=== PATIENT | female | born 1965 | race Caucasian/White ===

== ENCOUNTER 2019-05-08 20:16 | Day surgery (SDC) | payer OTHER ==
[~2019-05-08 20:16] MED LIST: ACETAMINOPHEN 1,000 MG/100 ML 100 ML IV ONE; DEXAMETHASONE 4 MG/ML VIAL IVP ONE; GLYCOPYRROLATE 1 MG/5 ML VIAL IVP ONE; LIDOCAINE-MPF 2% 5 ML VIAL IM ONE; MIDAZOLAM 2 MG/2 ML VIAL IVP ONE; NEOSTIGMINE 1 MG/1 ML 10 ML MDV IVP ONE; ONDANSETRON 4 MG/2 ML VIAL IVP ONE; PROPOFOL 200 MG/20 ML VIAL IVP ONE; ROCURONIUM 50 MG/5 ML VIAL IVP ONE; fentaNYL 100 MCG/2 ML VIAL IVP ONE
[2019-05-08] MEDS ORDERED: LIDOCAINE VISCOUS 2% 15 ML UDC MM STA ×2 (21:16→21:34)
[2019-05-08 21:17] LABS: BASOPHILS % (AUTO) 0.3 %; EOSINOPHILS # (AUTO) 0.1 10^3/uL (0.0-0.7); EOSINOPHILS % (AUTO) 1.1 %; HGB - HEMOGLOBIN 13.7 g/dL (12.0-16.0); LYMPHOCYTES # (AUTO) 1.8 10^3/uL (1.5-3.5); LYMPHOCYTES % (AUTO) 14.2 %; MEAN CORPUSCULAR HEMOGLOBIN 31.2 pg (27.0-31.0); MEAN CORPUSCULAR VOLUME 91.8 fL (81.0-99.0); MEAN PLATELET VOLUME 12.2 fL (7.9-10.8); MONOCYTES # (AUTO) 0.9 10^3/uL (0.0-1.0); MONOCYTES % (AUTO) 7.1 %; NEUTROPHILS # (AUTO) 9.8 10^3/uL (1.5-6.6); NEUTROPHILS % (AUTO) 77.1 %; PLT - PLATELET COUNT 186 10^3/uL (130-450); RED BLOOD COUNT 4.39 10^6/uL (4.20-5.40); RED CELL DISTRIBUTION WIDTH 13.1 % (12.0-15.0); WHITE BLOOD COUNT 12.7 x10^3/uL (4.8-10.8)
[2019-05-08] MEDS ORDERED: MAG HYDROX/AL HYDROX/SIMETH 30 ML UDC PO STA ×2 (21:17→21:34)
[2019-05-08 21:25] LABS: BILIRUBIN,URINE NEGATIVE (NEGATIVE); GLUCOSE, URINE (UA) NEGATIVE (NEGATIVE); KETONES,URINE (UA) NEGATIVE (NEGATIVE); LEUKOCYTE ESTERASE, URINE NEGATIVE (NEGATIVE); NITRITE,URINE NEGATIVE (NEGATIVE); OCCULT BLOOD,URINE NEGATIVE (NEGATIVE); PROTEIN,URINE NEGATIVE (NEGATIVE); UROBILINOGEN,URINE 0.2 (NORMAL) E.U./dL (NORMAL)
[2019-05-08 21:28] LABS: CLARITY,URINE CLEAR (CLEAR)
[2019-05-08 21:29] LABS: ALBUMIN 3.9 g/dL (3.2-5.5); ALBUMIN/GLOBULIN RATIO 1.1 (1.0-2.2); ALKALINE PHOSPHATASE 66 IU/L (42-121); ALT ALANINE AMINOTRANSFERASE 23 IU/L (10-60); AST ASPARTATE AMINOTRANSFERASE 19 IU/L (10-42); BILIRUBIN,TOTAL 0.8 mg/dL (0.2-1.0); BUN - BLOOD UREA NITROGEN 13 mg/dL (6-20); CALCIUM 9.5 mg/dL (8.5-10.3); CARBON DIOXIDE - CO2 24 mmol/L (21-32); CHLORIDE 104 mmol/L (101-111); GFR - MDRD 58 (>89); GLUCOSE 118 mg/dL (70-100); LIPASE 41 U/L (22-51); SODIUM 139 mmol/L (135-145); TOTAL PROTEIN 7.3 g/dL (6.7-8.2)
--- NOTE | 2019-05-08 21:29 | ED Physician Documentation ---
PD HPI ABD PAIN - Stated complaint Stated Complaint: ABDOMINAL PAIN - Chief complaint Chief Complaint: Abd Pain - History obtained from History obtained from: Patient, Family - History of Present Illness Timing - onset: Enter time (1529), Today Timing - duration: Hours Timing - details: Abrupt onset, Still present Quality: Cramping, Sharp, Stabbing, Pain Location: Epigastric Improved by: Other (nothing) Worsened by: Other (nothing) Associated symptoms: No: Fever, Nausea, Vomiting, Diarrhea, Constipation Similar symptoms before: Diagnosis (ulcer) Recently seen: Not recently seen - Additional information Additional information: Previously well 53-year-old female had a wine cooler with her today at about 3:30 in the afternoon and shortly after she developed pain in the epigastrium similar to what she had had 25 years ago from a wine cooler. She states the pain has persisted and despite taking Mylanta, Pepto-Bismol and Tums she has not had relief the pain. She does have some improvement from earlier in the day when she arrives to the emergency department. She has had these symptoms previously with ulcer and she has nighttime symptoms that she usually takes care of with crackers and water. Review of Systems Constitutional: denies: Fever Eyes: denies: Decreased vision Ears: denies: Ear pain Nose: denies: Congestion Throat: denies: Sore throat Cardiac: denies: Chest pain / pressure, Palpitations Respiratory: denies: Dyspnea GI: reports: Abdominal Pain, Nausea. denies: Vomiting : denies: Dysuria PD PAST MEDICAL HISTORY - Past Medical History Past Medical History: Yes Psych: ADD/ADHD - Past Surgical History Past Surgical History: No - Allergies Allergies/Adverse Reactions: Allergies Allergy/AdvReac Type Severity Reaction Status Date / Time carbamazepine [From Tegretol] Allergy Hives Verified 05/08/19 20:25 - Social History Does the pt smoke?: No Smoking Status: Never smoker Does the pt drink ETOH?: Yes Does the pt have substance abuse?: No - Immunizations Immunizations are current?: No Immunizations: TDAP >10years/unknown, Other immun not current PD ED PE NORMAL - Vitals Vital signs reviewed: Yes - General General: Alert and oriented X 3, Well developed/nourished, Other (appaers to be in pain ) - HEENT HEENT: Atraumatic, PERRL, EOMI - Neck Neck: Supple, no meningeal sign - Cardiac Cardiac: RRR, No murmur - Respiratory Respiratory: No respiratory distress, Clear bilaterally - Abdomen Abdomen: Soft, Other (mild epigastric tenderness without guarding or rebound tenderness.) - Back Back: No CVA TTP, No spinal TTP - Derm Derm: Normal color, Warm and dry, No rash - Extremities Extremities: No deformity, No tenderness to palpate, Normal ROM s pain, No edema, No calf tenderness / cord - Neuro Neuro: Alert and oriented X 3, 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, No motor deficit, No sensory deficit, Normal speech Eye Opening: Spontaneous Motor: Obeys Commands Verbal: Oriented GCS Score: 15 - Psych Psych: Normal mood, Normal affect Results - Vitals Vitals: Vital Signs - 24 hr 05/08/19 05/08/19 05/08/19 20:21 21:34 22:27 Temperature 36.9 C Heart Rate 82 83 78 Respiratory 20 16 16 Rate Blood Pressure 177/116 H 161/74 H 151/91 H O2 Saturation 98 97 98 05/08/19 05/09/19 05/09/19 23:02 00:22 01:36 Temperature Heart Rate 96 101 H 109 H Respiratory 16 16 16 Rate Blood Pressure 142/87 H 142/90 H 102/73 O2 Saturation 99 98 98 Oxygen O2 Source Room air - Labs Labs: Laboratory Tests 05/08/19 05/08/19 05/08/19 21:08 21:08 21:20 WBC 12.7 H RBC 4.39 Hgb 13.7 Hct 40.3 MCV 91.8 MCH 31.2 H MCHC 34.0 RDW 13.1 Plt Count 186 MPV 12.2 H Neut # (Auto) 9.8 H Lymph # (Auto) 1.8 [place] # (Auto) 0.9 Eos # (Auto) 0.1 Baso # (Auto) 0.0 Absolute Nucleated RBC 0.00 Nucleated RBC % 0.0 Sodium 139 Potassium 4.6 Chloride 104 Carbon Dioxide 24 Anion Gap 11.0 BUN 13 Creatinine 1.0 Estimated GFR (MDRD) 58 L Glucose 118 H Calcium 9.5 Total Bilirubin 0.8 AST 19 ALT 23 Alkaline Phosphatase 66 Total Protein 7.3 Albumin 3.9 Globulin 3.4 Albumin/Globulin Ratio 1.1 Lipase 41 Urine Color YELLOW Urine Clarity CLEAR Urine pH 5.0 Ur Specific [place] 1.015 Urine Protein NEGATIVE Urine Glucose (UA) NEGATIVE Urine Ketones NEGATIVE Urine Occult Blood NEGATIVE Urine Nitrite NEGATIVE Urine Bilirubin NEGATIVE Urine Urobilinogen 0.2 (NORMAL) Ur Leukocyte Esterase NEGATIVE Ur Microscopic Review NOT INDICATED Urine Culture Comments NOT INDICATED Ethyl Alcohol < 5.0 - Rads (name of study) CT abd/pel Radiology: Prelim report reviewed (Impression: Acute appendicitis.), EMP read indepedently, See rad report PD MEDICAL DECISION MAKING - ED course Complexity details: reviewed results, re-evaluated patient, considered differential, d/w patient, d/w family ED course: 53-year-old female with epigastric pain after drinking a wine cooler similar to what she is had previously has not had at adequate relief of her pain with use of viscous lidocaine and Mylanta she had a second dose of viscous lidocaine Mylanta and Carafate and this did not further relieve the pain or seem to make any difference. She now indicates that her pain has migrated and it appears to be in the right lower quadrant she does appear a bit tender there as well and CT of the abdomen pelvis is undertaken. She does have appendicitis and Dr. Anderson is consulted in the case and recommends unasyn and he will come to the ED in the AM to take the patient to surgery. Departure - Departure Disposition: ED Transfer to [facility] Clinical Impression: Appendicitis Qualifiers: Appendicitis type: acute appendicitis Acute appendicitis type: with localized peritonitis Appendicitis gangrene presence: without gangrene Appendicitis perforation presence: without perforation Appendicitis abscess presence: without abscess Qualified Code(s): K35.30 - Acute appendicitis with localized peritonitis, without perforation or gangrene Condition: Stable
[2019-05-08] MEDS ORDERED: FAMOTIDINE 20 MG/2 ML VIAL IVP STA (21:34)
[2019-05-08] MEDS ORDERED: SUCRALFATE 1 GM/10 ML UDC PO STA (21:34)
[2019-05-08] MEDS ORDERED: ONDANSETRON 4 MG/2 ML VIAL IVP STA (22:01)
[2019-05-08] MEDS ORDERED: HYDROmorphone 1 MG/ML CARPUJECT IVP STA (22:01)
--- NOTE | 2019-05-08 22:49 | CT Report ---
Reason: RLQ pain Procedure Date: 05/08/2019 Accession Number: [id number] / [id number] Procedure: CT - Abdomen/Pelvis WO CPT Code: FULL RESULT: EXAM: CT ABDOMEN AND PELVIS EXAM DATE: 05/08/2019 10:17 PM. CLINICAL HISTORY: RLQ pain. COMPARISONS: None. TECHNIQUE: Routine helical CT imaging was performed through the abdomen and pelvis. IV contrast: None. Enteric contrast: No. Reconstructions: Coronal and sagittal. In accordance with CT protocol optimization, one or more of the following dose reduction techniques were utilized for this exam: automated exposure control, adjustment of mA and/or KV based on patient size, or use of iterative reconstructive technique. FINDINGS: Lung Bases: Unremarkable. Liver: Normal. No masses. Gallbladder/Bile Ducts: Prominent common bile duct post cholecystectomy. Spleen: Normal. Pancreas: Normal. Adrenal Glands: Normal. Kidneys: Normal. No masses or hydronephrosis. Peritoneal Cavity/Bowel: Normal. No free fluid, free air or adenopathy. No masses or acute inflammatory process. The appendix is dilated, up to 10 mm in diameter, with distal appendicoliths and wall enhancement. Minimal fat stranding. Pelvic Organs: Normal. The bladder and visualized pelvic organs are within normal limits. Vasculature: No aneurysms or other significant abnormality. Bones: No significant abnormality. Other: None. IMPRESSION: Acute appendicitis. RADIA
[2019-05-08] MEDS ORDERED: cefOXitin 1 GM in SODIUM CHLORIDE 0.9% MINIBAG 100 ML IV STA (23:45)
[2019-05-08] MEDS ORDERED: AMPICILLIN/SULBACTAM 1.5 GM in SODIUM CHLORIDE 0.9% MINIBAG 100 ML IV STA (23:57)
[2019-05-09] MEDS ORDERED: HYDROmorphone 1 MG/ML CARPUJECT IVP STA ×3 (01:59→06:08)
[2019-05-09] MEDS ORDERED: ONDANSETRON 4 MG/2 ML VIAL IVP STA (07:01)
[2019-05-09] MEDS ORDERED: BUPIVACAINE 0.5%-EPI 1:200000 PF 30 ML VIAL ONE (07:19)
--- NOTE | 2019-05-09 07:21 | ANESTHESIA ---
Pre-Anesthesia VS, & Labs - Diagnosis appendicitis - Procedure Laparoscopic appendectomy Vital Signs: Temp Pulse Resp BP Pulse Ox 36.5 C 115 H 16 120/86 H 97 05/09/19 05:56 05/09/19 05:56 05/09/19 05:56 05/09/19 05:56 05/09/19 05:56 Height 5 ft 4.5 in Weight (kg) 79.379 kg Body Mass Index 29.5 - NPO >8 hours - Is Patient ?: No - Lab Results Current Lab Results: Laboratory Tests 05/08/19 21:08: Sodium 139, Potassium 4.6, Chloride 104, Carbon Dioxide 24, Anion Gap 11.0, BUN 13, Creatinine 1.0, Estimated GFR (MDRD) 58 L, Glucose 118 H , Calcium 9.5, Total Bilirubin 0.8, AST 19, ALT 23, Alkaline Phosphatase 66, Total Protein 7.3, Albumin 3.9, Globulin 3.4, Albumin/Globulin Ratio 1.1, Lipase 41, Ethyl Alcohol < 5.0 05/08/19 21:08: WBC 12.7 H, RBC 4.39, Hgb 13.7, Hct 40.3, MCV 91.8, MCH 31.2 H, MCHC 34.0, RDW 13.1, Plt Count 186, MPV 12.2 H, Neut # (Auto) 9.8 H, Lymph # (Auto) 1.8, [place] # (Auto) 0.9, Eos # (Auto) 0.1, Baso # (Auto) 0.0, Absolute Nucleated RBC 0.00, Nucleated RBC % 0.0 Fish Bones: 05/08/19 21:08 05/08/19 21:08 Home Medications and Allergies Allergies/Adverse Reactions: Allergies Allergy/AdvReac Type Severity Reaction Status Date / Time carbamazepine [From Tegretol] Allergy Hives Verified 05/08/19 20:25 Anes History & Medical History - Anesthetic History Anesthesia Complications: reports: No previous complications - Medical History Pulmonary: reports: None Gastrointestinal: reports: None Neuro: reports: Seizure disorder (remote, after head injury) Smoking Status: Never smoker Exam General: Alert Dental: WNL Mouth Opening: Greater than 4 Fingerbreadths Neck Mobility: Normal Mallampati classification: II Thyromental Distance: greater than 6 cm Respiratory: Lungs clear Cardiovascular: Regular rate Mental/Cognitive Status: Alert/Oriented X3 Plan Anesthesia Type: General Consent for Procedure(s) Verified and Reviewed: Yes Code Status: Attempt Resuscitation ASA classification: 2-Mild systemic disease Is this case an emergency?: Yes
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
[2019-05-09] MEDS ORDERED: PIPERACILLIN/TAZOBACTAM 3.375 GM in SODIUM CHLORIDE 0.9% MINIBAG 100 ML IV ONE (07:26)
[2019-05-09] MEDS ORDERED: LACTATED RINGERS 1,000 ML IV ONE (07:37)
[2019-05-09] MEDS ORDERED: BUPIVACAINE 0.5%-EPI 1:200000 PF 30 ML VIAL SUBQ ONE ×2 (08:05)
[2019-05-09] MEDS ORDERED: oxyCODONE 5 MG TABLET PO PRN (08:45)
[2019-05-09] MEDS ORDERED: ONDANSETRON 4 MG/2 ML VIAL IVP PRN (08:45)
[2019-05-09] MEDS ORDERED: IBUPROFEN 600 MG TABLET PO PRN (08:45)
[2019-05-09] MEDS ORDERED: ACETAMINOPHEN 325 MG TABLET PO PRN (08:45)
[2019-05-09] MEDS ORDERED: oxyCODONE 5 MG TABLET ONE (10:02)
--- NOTE | 2019-05-09 10:16 | OPERATIVE REPORT ---
DATE OF SERVICE: 05/09/2019 Physician: Sebastián Anderson MD PREOPERATIVE DIAGNOSIS: Acute appendicitis. POSTOPERATIVE DIAGNOSIS: Acute appendicitis. PROCEDURE PERFORMED: Laparoscopic appendectomy. ANESTHESIA: General endotracheal by Mary Palacios CRNA. SURGEON: Sebsatián Anderson MD ESTIMATED BLOOD LOSS: Less than 5 mL COMPLICATIONS: None. FINDINGS: An acutely inflamed intraperitoneal appendix was identified, the distal 3/4 of which was markedly dilated, inflamed with periappendiceal inflammation, but no gross evidence of perforation or generalized peritonitis. The cecal base, the cecum, the terminal ileum, liver, uterus, tubes, all appeared otherwise normal. INDICATIONS: Patient is a 53-year-old woman with an approximately 18-hour history of periumbilical abdominal pain, which localized to the right lower quadrant associated with right lower quadrant peritoneal signs, leukocytosis, and a CT scan showing an abnormal appendix, consistent with acute appendicitis. She was advised to undergo laparoscopic appendectomy for definitive surgical treatment. TECHNIQUE: After informed consent, patient was taken to the operating room where she was placed under general endotracheal anesthesia. Preoperative preparation included application of sequential calf compression boots, administration of 3.375 grams of Zosyn intravenously. Her abdomen was prepared with ChloraPrep solution and draped in the usual sterile fashion. A curvilinear infraumbilical incision was made and carried down through the layers of the abdominal wall until the peritoneum was identified and entered sharply. A 10 mm [place] cannula was inserted. Pneumoperitoneum was achieved with carbon dioxide. A 5 mm 30-degree Johnny telescope was inserted. Laparoscopy was carried out with findings noted above. Two additional 5 mm ports were placed, one in the lower midline the other in the left lower quadrant. Instruments were passed. The appendix was exposed, mobilized, and grasped. The mesoappendix was ligated and divided with the LigaSure device. The base of the appendix was cleared circumferentially, then ligated and divided with the approximate linear cutting stapling 45 mm device with a vascular load. The appendix was placed in an organ retrieval bag, extracted, and sent for pathologic evaluation. After hemostasis was ensured, the right lower quadrant was copiously irrigated with saline solution, following which instruments and cannulas were removed under direct vision. Pneumoperitoneum was allowed to escape, and the incisions were closed in layers using continuous 0 Vicryl reapproximated in the midline fascia at the umbilicus, followed by 4-0 Monocryl subcuticular skin closure at all the port sites; 20 mL of 0.5% Marcaine with epinephrine was infiltrated into the incisions to assist in postoperative analgesia. Dermabond was applied. Anesthesia was terminated, and patient transferred to the recovery room in satisfactory condition. Sponge and needle counts were correct x2. No drains were used. TD: 05/09/2019 08:53 YA
[2019-05-09 10:25] VITALS: BP 113/75
== END 2019-05-09 07:26 | disposition home or self-care (01) ==
LOC: ED 20:16 → SDS 05-09 07:25
PROVIDERS: ATTEND Internal Medicine Gastroenterology
PROC: 0DTJ4ZZ Resection of Appendix, Percutaneous Endoscopic Approach (ICD-10-PCS; principal; 2019-05-09 07:30)
DX: K35.30 Acute appendicitis with localized peritonitis, without perforation or gangrene (principal); K38.1 Appendicular concretions; Z87.11 Personal history of peptic ulcer disease; Z86.69 Personal history of other diseases of the nervous system and sense organs; Z90.49 Acquired absence of other specified parts of digestive tract; Z87.820 Personal history of traumatic brain injury
CPT/HCPCS: 36415; 44970; 74176; 80053; 80320; 81003; 83690; 85025; 96374; 96375; 99284; 99285; A9270; J0131; J1170; J7120; 81001; 87086

== ENCOUNTER 2020-07-16 10:32 | Outpatient (CLI) | payer OTHER ==
[2020-07-16 12:37] LABS: THYROID STIMULATING HORMONE < 0.08 uIU/mL (0.34-5.60)
[2020-07-16 12:40] LABS: FREE T3 9.62 pg/mL (2.5-3.9)
[2020-07-16 12:41] LABS: FREE T4 (FREE THYROXINE) 1.13 ng/dL (0.58-1.64)
== END 2020-07-16 23:59 | disposition home or self-care (01) ==
LOC: LAB.WCP 10:32
PROVIDERS: ATTEND Nurse Practitioner
DX: E03.9 Hypothyroidism, unspecified (principal)
CPT/HCPCS: 36415; 84439; 84443; 84481

== ENCOUNTER 2020-09-09 11:42 | Outpatient (CLI) | payer OTHER ==
[2020-09-09 18:20] LABS: THYROID STIMULATING HORMONE 3.56 uIU/mL (0.34-5.60)
[2020-09-09 18:22] LABS: FREE T3 2.89 pg/mL (2.5-3.9); FREE T4 (FREE THYROXINE) 0.76 ng/dL (0.58-1.64)
== END 2020-09-09 23:59 | disposition home or self-care (01) ==
LOC: LAB.WCP 11:42
PROVIDERS: ATTEND Nurse Practitioner
DX: E03.9 Hypothyroidism, unspecified (principal)
CPT/HCPCS: 36415; 84439; 84443; 84481

== ENCOUNTER 2021-06-10 08:00 | Outpatient (CLI) | payer MEDICARE, MEDICAID ==
[2021-06-10 10:30] LABS: MUDS CUTOFF CONCENTRATIONS CUTOFF CONC BELOW:
[2021-06-10 18:13] LABS: BASOPHILS # (AUTO) 0.1 10^3/uL (0.0-0.1); BASOPHILS % (AUTO) 1.2 %; EOSINOPHILS # (AUTO) 0.2 10^3/uL (0.0-0.7); EOSINOPHILS % (AUTO) 4.4 %; HGB - HEMOGLOBIN 14.3 g/dL (12.0-16.0); LYMPHOCYTES # (AUTO) 1.4 10^3/uL (1.5-3.5); LYMPHOCYTES % (AUTO) 32.8 %; MEAN CORPUSCULAR HEMOGLOBIN 32.5 pg (27.0-31.0); MEAN CORPUSCULAR HGB CONC 33.3 g/dL (32.0-36.0); MEAN CORPUSCULAR VOLUME 97.7 fL (81.0-99.0); MEAN PLATELET VOLUME 11.7 fL (7.9-10.8); MONOCYTES # (AUTO) 0.5 10^3/uL (0.0-1.0); MONOCYTES % (AUTO) 10.5 %; NEUTROPHILS # (AUTO) 2.2 10^3/uL (1.5-6.6); NEUTROPHILS % (AUTO) 50.9 %; PLT - PLATELET COUNT 221 10^3/uL (130-450); WHITE BLOOD COUNT 4.3 x10^3/uL (4.8-10.8)
[2021-06-10 18:29] LABS: AMPHETAMINE SCREEN,URINE POSITIVE (NEGATIVE); BARBITURATE SCREEN,UR NEGATIVE (NEGATIVE); BENZODIAZEPINES SCREEN, URINE NEGATIVE (NEGATIVE); COCAINE SCREEN URINE NEGATIVE (NEGATIVE); METHADONE SCREEN, URINE NEGATIVE (NEGATIVE); METHAMPHETAMINES SCREEN, URINE NEGATIVE (NEGATIVE); OPIATE SCREEN, URINE NEGATIVE (NEGATIVE); OXYCODONE SCREEN, URINE NEGATIVE (NEGATIVE); PROPOXYPHENE SCREEN, URINE NEGATIVE (NEGATIVE); THC CANNABINOID SCREEN, URINE NEGATIVE (NEGATIVE); TRICYCLIC ANTIDEPRESSANT,URINE NEGATIVE (NEGATIVE)
[2021-06-10 18:44] LABS: ALBUMIN 4.6 g/dL (3.2-5.5); ALBUMIN/GLOBULIN RATIO 1.4 (1.0-2.2); ALKALINE PHOSPHATASE 63 IU/L (42-121); ALT ALANINE AMINOTRANSFERASE 26 IU/L (10-60); AST ASPARTATE AMINOTRANSFERASE 19 IU/L (10-42); BILIRUBIN,TOTAL 0.9 mg/dL (0.2-1.0); BUN - BLOOD UREA NITROGEN 18 mg/dL (6-20); CALCIUM 9.5 mg/dL (8.5-10.3); CARBON DIOXIDE - CO2 29 mmol/L (21-32); CHLORIDE 100 mmol/L (101-111); CHOL/HDL RATIO 2.4 (<4.4); CHOLESTEROL 274 mg/dL; GFR - MDRD 58 (>89); GLUCOSE 85 mg/dL (70-100); HDL CHOLESTEROL 114 mg/dL; LDL CHOLESTEROL,CALCULATED 125 mg/dL; LDL/HDL RATIO 1.1 (<4.4); POTASSIUM 3.6 mmol/L (3.5-5.0); SODIUM 139 mmol/L (135-145); TOTAL PROTEIN 7.9 g/dL (6.7-8.2); TRIGLYCERIDES 174 mg/dL; URIC ACID 5.4 mg/dL (2.6-7.2); VLDL CHOLESTEROL 35 mg/dL
[2021-06-10 18:45] LABS: THYROID STIMULATING HORMONE 4.98 uIU/mL (0.34-5.60)
[2021-06-10 18:46] LABS: FREE T3 3.83 pg/mL (2.5-3.9)
[2021-06-10 18:47] LABS: FREE T4 (FREE THYROXINE) 0.74 ng/dL (0.58-1.64)
[2021-06-10 18:52] LABS: CRP - C-REACTIVE PROTEIN < 1.0 mg/dL (0-1.0)
[2021-06-10 20:14] LABS: RHEUMATOID FACTOR NEGATIVE (Negative)
== END 2021-06-10 23:59 | disposition home or self-care (01) ==
LOC: LAB.WCP 08:00
PROVIDERS: ATTEND Family Medicine
DX: I69.351 Hemiplegia and hemiparesis following cerebral infarction affecting right dominant side (principal); F41.9 Anxiety disorder, unspecified; F90.9 Attention-deficit hyperactivity disorder, unspecified type; E03.9 Hypothyroidism, unspecified; G54.9 Nerve root and plexus disorder, unspecified; K21.00 Gastro-esophageal reflux disease with esophagitis, without bleeding; M19.90 Unspecified osteoarthritis, unspecified site
CPT/HCPCS: 36415; 80053; 80061; 80306; 83721; 84439; 84443; 84481; 84550; 85025; 85651; 86038; 86140; 86430

== ENCOUNTER 2022-03-27 22:54 | Emergency (ER) | payer MEDICARE, MEDICAID ==
[2022-03-27] MEDS ORDERED: KETOROLAC 30 MG/ML VIAL IM STA (23:34)
[2022-03-27] MEDS ORDERED: CHERRY SYRUP 10 ML UDC PO ONE (23:34)
[2022-03-27] MEDS ORDERED: DEXAMETHASONE 10 MG/ML VIAL PO STA (23:34)
[2022-03-28 00:34] LABS: CORONAVIRUS 229E-RESP PCR NOT DETECTED; CORONAVIRUS HKU1-RESP PCR NOT DETECTED; CORONAVIRUS NL63-RESP PCR NOT DETECTED; CORONAVIRUS OC43-RESP PCR NOT DETECTED; HUMAN METAPNEUMOVIRUS NOT DETECTED; INFLUENZA A- RESP PCR PANEL NOT DETECTED; RHINOVIRUS/ENTEROVIRUS NOT DETECTED; SARS-CoV-2 -RESP PCR PANEL NOT DETECTED
[2022-03-28 00:35] LABS: B. PARAPERTUSSIS- RESP PCR PAN NOT DETECTED; B. PERTUSSIS- RESP PCR PANEL NOT DETECTED; C. PNEUMONIAE- RESP PCR PANEL NOT DETECTED; INFLUENZA B - RESP PCR PANEL NOT DETECTED; M. PNEUMONIAE- RESP PCR PANEL NOT DETECTED; PARAINFLUENZA VIRUS 1 NOT DETECTED; PARAINFLUENZA VIRUS 2 NOT DETECTED; PARAINFLUENZA VIRUS 3 NOT DETECTED; PARAINFLUENZA VIRUS 4 NOT DETECTED; RSV- RESP PCR PANEL NOT DETECTED
--- NOTE | 2022-03-28 00:51 | CT Report ---
PROCEDURE: Sinuses INDICATIONS: persistent sinus pain TECHNIQUE: Noncontrast 3.0 mm axial images acquired from the frontal sinuses to the mid-sella, with coronal and sagittal reformats. For radiation dose reduction, the following was used: automated exposure control , adjustment of mA and/or kV according to patient size. COMPARISON: None. FINDINGS: Image quality: Excellent. Maxillary Sinuses: Postsurgical changes are noted in bilateral maxilla. No bony remodeling or destru ction. Mild mucosal thickening in right maxillary sinus is seen. Ethmoid Air Cells: No bony remodeling or destruction. Sinuses are clear. Sphenoid Sinuses: No bony remodeling or destruction. Sinuses are clear. Frontal Sinuses: No bony remodeling or destruction. Sinuses are clear. Ostiomeatal Complexes: Bilateral ostiomeatal complexes are patent. No Jonathan cells. Miscellaneous: Visualized intra-orbital contents are normal. Nieves bullosa of bilateral middle nasa l turbinates are seen. Mild nasal septal deviation to the right is seen. IMPRESSION: 1. Postsurgical changes involving bilateral maxillary and medial wall of left maxillary sinus. No fac ial bones nasal bone fracture. Mild nasal septal deviation to the right. 2. Mild mucosal thickening in right maxillary sinus. Rest of bilateral paranasal sinuses are well aer ated. 3. Nieves bullosa of bilateral middle nasal turbinates. 4. Bilateral ostiomeatal complexes are patent. Reviewed by: José Luis Brown MD on 03/28/2022 12:49 AM PDT Approved by: José Luis Brown MD on 03/28/2022 12:49 AM PDT Station ID: [id number]
[2022-03-28] MEDS ORDERED: LIDOCAINE 1% 2 ML VIAL MC ONE (01:37)
[2022-03-28] MEDS ORDERED: cefTRIAXone 1 GM VIAL IM STA (01:37)
--- NOTE | 2022-03-28 01:40 | ED Physician Documentation ---
History of Present Illness - Stated complaint Stated Complaint: BODY PX - Chief complaint Chief Complaint: General - History obtained from History obtained from: Patient - History of Present Illness Timing: How many weeks ago (6) - Additonal information Additional information: Mary Maki is a 56-year-old female who is coming to the emergency department this evening with a chief complaint of pains in her arm and low back that are been present for about 6 weeks. She reports undulation in her symptoms and feels that there may be an infection somewhere as she has had these similar symptoms previously. The patient has ADHD and is a poor historian. She will develop a tangential history to any question asked and needs redirection. She has tested for COVID and has been negative. Review of Systems Constitutional: denies: Fever Eyes: denies: Decreased vision Ears: denies: Ear pain Nose: reports: Congestion, Sinus pressure / pain Throat: denies: Sore throat Cardiac: denies: Chest pain / pressure, Palpitations Respiratory: denies: Dyspnea, Cough : denies: Dysuria, Frequency Skin: denies: Rash Musculoskeletal: reports: Back pain. denies: Neck pain, Extremity pain Neurologic: denies: Generalized weakness, Focal weakness, Numbness PD PAST MEDICAL HISTORY - Past Medical History Past Medical History: Yes Cardiovascular: None Respiratory: None Neuro: Seizure disorder Endocrine/Autoimmune: None GI: None SENIOR DIRECTOR CREATIVE SERVICES: None : None Psych: ADD/ADHD Musculoskeletal: Hemiplegia - Past Surgical History Past Surgical History: Yes General: Cholecystectomy HEENT: Tracheostomy, Other - Present Medications Home Medications: Ambulatory Orders Medication Instructions Recorded Confirmed Duloxetine HCl [Cymbalta] 60 mg PO 03/27/22 Lisdexamfetamine Dimesylate 70 mg PO DAILY 03/27/22 03/27/22 [Vyvanse] Mirtazapine 30 mg PO DAILY 03/27/22 03/27/22 Amox/Clav 875/125 [Augmentin] 1 each PO Q12H #20 tablet 03/28/22 - Allergies Allergies/Adverse Reactions: Allergies Allergy/AdvReac Type Severity Reaction Status Date / Time carbamazepine [From Tegretol] Allergy Hives Verified 03/27/22 23:01 - Social History Does the pt smoke?: No Smoking Status: Never smoker Does the pt drink ETOH?: Yes Does the pt have substance abuse?: No - Immunizations Immunizations are current?: No Immunizations: TDAP >10years/unknown, Other immun not current - POLST Patient has POLST: No POLST Status: Full Code PD ED PE NORMAL - General General: Alert and oriented X 3, No acute distress, Well developed/nourished - HEENT HEENT: Atraumatic, PERRL, EOMI, Ears normal, Other (maxillary sinus point tenderness is present bilaterally worse on the right. The left TM has significant tympanosclerosis without definate inflammation.) - Neck Neck: Supple, no meningeal sign, No bony TTP - Cardiac Cardiac: RRR, No murmur - Respiratory Respiratory: No respiratory distress, Clear bilaterally - Abdomen Abdomen: Soft, Non tender - Back Back: No CVA TTP, No spinal TTP - Derm Derm: Normal color, Warm and dry, No rash - Extremities Extremities: No deformity, No edema - Neuro Neuro: Alert and oriented X 3, lead game designer 2-12 intact, No motor deficit, No sensory deficit, Normal speech Eye Opening: Spontaneous Motor: Obeys Commands Verbal: Oriented GCS Score: 15 - Psych Psych: Normal mood, Normal affect Results - Vitals Vitals: Vital Signs - 24 hr 03/27/22 03/28/22 22:56 02:01 Temperature 36.8 C Heart Rate 110 H 65 Respiratory 20 18 Rate Blood Pressure 167/97 H 153/87 H O2 Saturation 100 97 Oxygen O2 Source Room air - Labs Labs: Laboratory Tests 03/27/22 23:41 Nasal Adenovirus (PCR) NOT DETECTED Nasal B. parapertussis DNA (PCR) NOT DETECTED Nasal Coronavir 229E PCR NOT DETECTED Nasal Coronavir HKU1 PCR NOT DETECTED Nasal Coronavir NL63 PCR NOT DETECTED Nasal Coronavir OC43 PCR NOT DETECTED Nasal Enterovir/Rhinovir PCR NOT DETECTED Nasal Influenza B PCR NOT DETECTED Nasal Influenza A PCR NOT DETECTED Nasal Parainfluen 1 PCR NOT DETECTED Nasal Parainfluen 2 PCR NOT DETECTED Nasal Parainfluen 3 PCR NOT DETECTED Nasal Parainfluen 4 PCR NOT DETECTED Nasal RSV (PCR) NOT DETECTED Nasal B.pertussis DNA PCR NOT DETECTED Nasal C.pneumoniae (PCR) NOT DETECTED Arpan Human Metapneumo PCR NOT DETECTED Nasal M.pneumoniae (PCR) NOT DETECTED Nasal SARS-CoV-2 (PCR) NOT DETECTED - Rads (name of study) CT sinuses Radiology: Prelim report reviewed (Impression: 1. Postsurgical changes involving bilateral maxillary medial wall of left maxillary sinus. No facial bone nasal bone fracture. Mild nasal septal deviation to the right. Mild mucosal thickening in right maxillary sinus. Rest of bilateral paranasal sinuses are well-aerated. ), Final report received (Nieves bullosa of bilateral middle nasal turbinates. Bilateral ostiomeatal complexes are patent), EMP read indepedently, See rad report PD MEDICAL DECISION MAKING - ED course Complexity details: reviewed results, re-evaluated patient, considered differential, d/w patient ED course: 56-year-old female with aches and pains in her left arm and low back has a history of ADHD. She is a tangential historian making it difficult to ascertain the underlying problems. She does appear to have some sinus disease and this is treated. Departure - Departure Disposition: 01 Home, Self Care Clinical Impression: Sinusitis Qualifiers: Sinusitis location: maxillary Chronicity: subacute Qualified Code(s): J01.00 - Acute maxillary sinusitis, unspecified Condition: Stable Instructions: ED Sinusitis Abx Tx Follow-Up: Robel Griffin MD [Provider Admit Priv/Credential] - Prescriptions: Amox/Clav 875/125 [Augmentin] 1 each PO Q12H #20 tablet Comments: vincent Westfall it looks like your chief complaint is pains in your arm, hand and lower back. All areas of previous injury/inflammation. This sometimes happens with infection and you are covid negative but there is evidence of infection in the right maxillary sinus. We have initiated treatment in the ED with antibiotic and a decongestant dose of decadron. The recommendation is to take the antibiotic that has been e-scribed to [facility] in [place] and use a decongestant while you are on the antibiotic. Discharge Date/Time: 03/28/22 02:01
[2022-03-28 02:01] VITALS: BP 153/87
== END 2022-03-28 02:01 | disposition home or self-care (01) ==
LOC: ED 22:54
DX: J01.00 Acute maxillary sinusitis, unspecified (principal); Z20.822 Contact with and (suspected) exposure to COVID-19
CPT/HCPCS: 70486; 87633; 96372; 99282; 99284; A9270

== ENCOUNTER 2022-03-31 08:00 | Outpatient (CLI) | payer MEDICARE, MEDICAID ==
--- NOTE | 2022-04-01 17:19 | XRAY Report ---
PROCEDURE: Lumbar Spine 2 View INDICATIONS: LOW BACK PX TECHNIQUE: 3 views of the lumbar spine were acquired. COMPARISON: None. FINDINGS: Bones: 5 [id number] vertebrae are present. There is normal bony alignment. Mild disc and kushal inal narrowing is present L5-S1. No vertebral body compression fractures. No suspicious bony lesions . Soft tissues: Overlying bowel gas pattern is normal. No suspicious soft tissue calcifications. IMPRESSION: Mild disc and foraminal narrowing at L5-S1. Reviewed by: Camila Tiwari MD on 04/01/2022 5:17 PM PDT Approved by: Camila Tiwari MD on 04/01/2022 5:17 PM PDT Station ID: [id number]
== END 2022-03-31 23:59 | disposition home or self-care (01) ==
LOC: DI.N 08:00
PROVIDERS: ATTEND Registered Nurse
DX: M48.07 Spinal stenosis, lumbosacral region (principal)

== ENCOUNTER 2022-03-31 08:00 | Outpatient (CLI) | payer MEDICARE, MEDICAID ==
[2022-03-31 21:05] LABS: CALCIUM 9.7 mg/dL (8.5-10.3); CREATININE 0.9 mg/dL (0.4-1.0); POTASSIUM 3.7 mmol/L (3.5-5.0)
== END 2022-03-31 23:59 | disposition home or self-care (01) ==
LOC: LAB.N 08:00
PROVIDERS: ATTEND Registered Nurse
DX: M54.50 Low back pain, unspecified (principal)
CPT/HCPCS: 36415; 80048

== ENCOUNTER 2022-05-28 07:14 | Outpatient (CLI) | payer MEDICARE, MEDICAID ==
--- NOTE | 2022-05-28 10:38 | MRI Report ---
PROCEDURE: Lumbar Spine W/O INDICATIONS: LUMBAR BACK PAIN, THORACIC BACK PAIN TECHNIQUE: Noncontrast sagittal T1 spin echo and T2 fast echo, sagittal STIR, axial T1 and T2 fast spin echo thr ough the lumbar spine. In cases with scoliosis, additional coronal T2 fast spin echo may be performe d. COMPARISON: Plain films of the lumbar spine dated 03/31/2022 FINDINGS: Image quality: Excellent. Alignment and Curvature: 5 lumbar type vertebral bodies are present by plain film. 2 mm of anterolis thesis of L4 on L5. There is otherwise normal bony alignment. Bone Marrow: Marrow is of normal overall signal. No acute vertebral body compression fractures. Mi ld reactive signal throughout the endplates of the thoracolumbar spine. Spinal Cord: Conus medullaris terminates at the lower L2 level. Visualized cord demonstrates normal signal and size. Paraspinous Soft Tissues: No paravertebral masses. T12-L1: Mild disc desiccation. No significant canal, nor foraminal stenosis. L1-L2: Mild disc desiccation. Mild facet and ligament flavum hypertrophy. Mild epidural lipomatosi s. No significant canal, nor foraminal stenosis. L2-L3: Mild disc desiccation. Mild facet and ligament flavum hypertrophy. Mild epidural lipomatosi s. No significant canal, nor foraminal stenosis. L3-L4: Mild disc desiccation. Mild facet and ligament flavum hypertrophy. Mild epidural lipomatosis . No significant canal, nor foraminal stenosis. L4-L5: Mild disc height loss and desiccation. Mild diffuse disc bulge. Mild facet and ligament flav um hypertrophy. Mild epidural lipomatosis. Mild canal stenosis. Mild bilateral foraminal stenosis. L5-S1: Mild disc desiccation. Mild bilateral facet hypertrophy. No significant canal, nor foraminal stenosis. IMPRESSION: 1. Multilevel degenerative disc and facet disease, in addition to epidural lipomatosis and ligamentum flavum hypertrophy. 2. Mild multilevel canal and foraminal stenoses. Reviewed by: Quinton Iqbal MD on 05/28/2022 10:37 AM PDT Approved by: Quinton Iqbal MD on 05/28/2022 10:37 AM PDT Station ID: [id number]
--- NOTE | 2022-05-28 12:01 | MRI Report ---
PROCEDURE: Thoracic Spine W/O INDICATIONS: LUMBAR BACK PAIN, THORACIC BACK PAIN TECHNIQUE: Noncontrast sagittal T1 spine echo and T2 fast spin echo, sagittal STIR, axial T1 and T2 fast spin ec ho through the thoracic spine. COMPARISON: Correlation is made with the accompanying lumbar spine MRI, 05/28/2022. FINDINGS: Image quality: Motion artifact is noted. Alignment and Curvature: There is normal bony alignment. Bone Marrow: Marrow is of normal overall signal. No acute vertebral body compression fractures. Spinal Cord: Visualized spinal cord is normal in size and signal. Paraspinous Soft Tissues: No paravertebral masses. Miscellaneous: Mild scattered degenerative changes are seen, with mild areas of endplate irregularity . No significant neural foraminal or central canal narrowing can be seen. IMPRESSION: No significant thoracic spine abnormality is seen for age. Reviewed by: Beltran Richmond MD on 05/28/2022 11:00 AM JOVITA Approved by: Beltran Richmond MD on 05/28/2022 11:00 AM JOVITA Station ID: [id number]
== END 2022-05-28 07:15 | disposition home or self-care (01) ==
LOC: DI 07:14
PROVIDERS: ATTEND Nurse Practitioner
DX: M51.36 Other intervertebral disc degeneration, lumbar region (principal); M48.061 Spinal stenosis, lumbar region without neurogenic claudication; M51.37 Other intervertebral disc degeneration, lumbosacral region; M47.816 Spondylosis without myelopathy or radiculopathy, lumbar region; M47.817 Spondylosis without myelopathy or radiculopathy, lumbosacral region